=== PATIENT | male | born 1955 | race Caucasian/White ===

== ENCOUNTER 2016-11-10 09:34 | Day surgery (SDC) | payer BC ==
--- NOTE | ~2016-11-10 | EGD ---
EGD REPORT [facility] [address] [address] NAME: VAN WEI : [birth year] STATUS : REG [facility]#: [id number] AGE: 60 ADM/REG DATE : 11/10/16 MR#: [id number] REPORT SERV DATE: 11/10/16 DICTATED BY: KEY MERCHANT DATE: 11/10/16 REPORT STATUS : Draft TRANSCRIBED BY: [facility] DATE: 11/10/16 Endoscopy Center Patient Name: Van Wei Date of : 1955 Attending MD: KEY MERCHANT MD Procedure Date No Time: 11/10/2016 Procedure: Colonoscopy Indications: Screening for colorectal malignant neoplasm Referring MD: Jah Herman MD Medicines: Monitored Anesthesia Care Complications: No immediate complications. Procedure: Pre-Anesthesia Assessment: - ASA Grade Assessment: III - A patient with severe systemic disease. After I obtained informed consent, the scope was passed under direct vision. Throughout the procedure, the patient's blood pressure, pulse, and oxygen saturations were monitored continuously. The CF [id number] was introduced through the anus and advanced to the cecum, identified by appendiceal orifice and ileocecal valve. The colonoscopy was performed without difficulty. The patient tolerated the procedure well. The quality of the bowel preparation was good. Findings: The digital rectal exam was normal. Pertinent negatives include no palpable rectal lesions. Two sessile polyps were found in the sigmoid colon. The polyps were 2 to 4 mm in size. These polyps were removed with a cold biopsy forceps. Resection and retrieval were complete. Hemorrhoids were found during retroflexion and were moderate. Impression: - Two 2 to 4 mm polyps in the sigmoid colon. Resected and retrieved. - Hemorrhoids. Recommendation: - Patient has a contact number available for emergencies. The signs and symptoms of potential delayed complications were discussed with the patient. Return to normal activities tomorrow. Written discharge instructions were provided to the patient. - Regular diet. - Continue present medications. - Await pathology results. EGD REPORT [facility] [address] [place] [address] [address] [facility] [address] NAME: VAN WEI : [birth year] STATUS : REG [facility] PAT#: [id number] AGE: 60 ADM/REG DATE : 11/10/16 MR#: [id number] REPORT SERV DATE: 11/10/16 DICTATED BY: KEY MERCHANT DATE: 11/10/16 REPORT STATUS : Draft TRANSCRIBED BY: Iconfinder DATE: 11/10/16 Procedure Code(s): --- Professional --- 90401, Colonoscopy, flexible, proximal to splenic flexure; with biopsy, single or multiple Diagnosis Code(s): --- Professional --- D12.5, Benign neoplasm of sigmoid colon K64.9, Unspecified hemorrhoids Z12.11, Encounter for screening for malignant neoplasm of colon CPT copyright 2013 [employer]. All rights reserved. The codes documented in this report are preliminary and upon rod and tube straightener review may be revised to meet current compliance requirements. KEY MERCHANT MD 11/10/2016 12:10 PM This report has been signed electronically. Number of Addenda: 0 Note Initiated On: 11/10/2016 11:35 AM Scope Withdrawal Time 0 hours 13 minutes 39 seconds [address] [place] [address]
[~2016-11-10 09:34] MED LIST: COQ-10 PO; CRANBERRY300 MG PO; FISH OIL PO; LISINOPRIL PO; MCZ25 PO; MULTIPLE VIT PO; PROZAC PO; ULTRAM50 PO; VITC500 PO
== END 2016-11-10 23:59 | disposition home or self-care (01) ==
LOC: DMU 09:34
PROVIDERS: Internal Medicine Gastroenterology
PROC: 0DBN8ZX Excision of Sigmoid Colon, Via Natural or Artificial Opening Endoscopic, Diagnostic (ICD-10-PCS; principal; 2016-11-10 11:00)
DX: Z12.11 Encounter for screening for malignant neoplasm of colon (principal); K63.5 Polyp of colon; K64.9 Unspecified hemorrhoids; I11.9 Hypertensive heart disease without heart failure; F41.9 Anxiety disorder, unspecified; F32.9 Major depressive disorder, single episode, unspecified; Z79.899 Other long term (current) drug therapy; Z95.0 Presence of cardiac pacemaker; Z98.890 Other specified postprocedural states
CPT/HCPCS: 88305